=== PATIENT | male | born 1985 | race Caucasian/White ===

== ENCOUNTER 2017-03-05 18:47 | Emergency (ER) | payer MEDICAID, OTHER ==
[2017-03-05] MEDS ORDERED: HYDROmorphone 2 MG/ML SDV IVPUSH ONE (19:09)
[2017-03-05] MEDS ORDERED: Sodium Chloride 0.9% 10 ML Syringe FLUSH PRN (19:09)
[2017-03-05] MEDS ORDERED: Iopamidol 755 MG/ML 150 ML Bottle IV ONE (19:26)
[2017-03-05] MEDS: Sodium Chloride 0.9% 1,000 ML IV SCH ×2 (19:55→21:01)
[2017-03-05] MEDS ORDERED: Sodium Chloride 0.9% 1,000 ML IV SCH (21:00)
[2017-03-05] MEDS ORDERED: Acetaminophen/Codeine 300-30 MG Tab PO ONE (21:36)
[2017-03-05 21:47] VITALS: BP 146/86
--- NOTE | 2017-03-06 03:59 | ER ---
DATE SEEN: 03/05/2017 TIME SEEN: 1900 hours. REASON FOR VISIT: Abdominal pain. HISTORY OF PRESENT ILLNESS: This is a 31-year-old male, known to me who comes in with abdominal pain since yesterday, severe mid umbilical pain with no radiation, associated with diarrhea. He has had vomiting over the weekend. He denies fever, was seen at a walk-in clinic, blood work was normal, ultrasound was done this morning, still pending. REVIEW OF SYSTEMS: No weakness of one side. No fever or chills. Denies any chest pain. PAST MEDICAL HISTORY: GERD and obesity. PHYSICAL EXAMINATION: GENERAL: He is a well-nourished male. He is not in distress. He is afebrile. ABDOMEN: Soft, mildly distended. Tenderness to palpation diffusely, but no rebound or rigidity. CHEST: Clear. MENTAL STATUS: Alert. LABORATORY DATA: CBC, amylase, CMP unremarkable. CT of the abdomen and pelvis is normal. IMPRESSION: Abdominal pain, acute GE. PLAN: Dilaudid 2 mg IV x1 dose. Sent home with Tylenol No. 3 to use one tablet t.i.d. p.r.n. Follow up in the office p.r.n. /[id number] ALVAREZ/STALIN
--- NOTE | 2017-03-09 10:55 | CT ---
\INDICATION: Periumbilical abdominal pain. Question umbilical hernia. CT ABDOMEN AND PELVIS WITH CONTRAST: Spiral 2.5-mm axial sections were obtained through the abdomen and pelvis with 150 mL Isovue-370 at 2 mL per second with sagittal and coronal reconstructions. Total Exam DLP = 1930.08 mGy-cm. The lower lung calvert and pleural spaces visualized appeared normal. The appendix appeared normal, visualized on axial images #147 through #159. No evidence of umbilical hernia, organomegaly, mass lesions, or free fluid collections was identified in the abdomen or pelvis. The liver, spleen, adrenals, kidneys, and pancreas were unremarkable. No retroperitoneal masses were identified. There are some retroperitoneal lymph nodes which are nonspecific and not grossly enlarged. No definite gallstones are demonstrated. Multiple metallic densities are noted in the area of the cecum, most likely representing medication. IMPRESSION: Normal CT of the abdomen and pelvis. CT PELVIS: Examination of the pelvis was obtained by CT, as noted above. The appendix appears to be normal. Multiple metallic appearing densities are noted in the area of the cecum, which likely represent medication. No organomegaly, mass lesions, or free fluid collections were identified in the pelvis. No evidence of bowel obstruction was seen. The prostate was normal in size. The urinary bladder was unremarkable. IMPRESSION: Essentially normal CT pelvis. Report was called to Dr. Junior at 1730 hours, 03/05/2017. [facility]
== END 2017-03-05 21:46 | disposition home or self-care (01) ==
LOC: FB.ED 18:47
DX: K52.9 Noninfective gastroenteritis and colitis, unspecified (principal); K21.9 Gastro-esophageal reflux disease without esophagitis; E66.9 Obesity, unspecified
CPT/HCPCS: 36415; 74177; 80053; 82150; 85025; 96361; 96374; 99284; J1170; J7040; J7050; Q9967; A9270-GY